=== PATIENT | male | born 1995 | race Caucasian/White ===

== ENCOUNTER 2017-02-14 10:23 | Emergency (ER) | payer OTHER ==
[~2017-02-14] VITALS: Ht 172.7 cm; Wt 79.4 kg
[2017-02-14 10:24] VITALS: BP 142/74
[2017-02-14] MEDS ORDERED: AUGM500T34 PO (10:34)
[2017-02-14] MEDS ORDERED: NORCO, ANEXSIA 5/325MG TABLET (HYDROcodone/ACETAMINOPHEN) PO ONE (10:45)
[2017-02-14] MEDS ORDERED: KETOROLAC 60 MG/2 ML VIAL (J1885) IM ONE (10:45)
[2017-02-14] MEDS ORDERED: ROBA500T PO ×2 (11:27→11:37)
[2017-02-14] MEDS ORDERED: NAPR500T2 PO ×2 (11:27→11:37)
[2017-02-14] MEDS ORDERED: NORCOTAB PO ×2 (11:27→11:37)
--- NOTE | 2017-02-14 11:28 | REP ---
Clinical: Pain . Technique: AP, lateral, flexion/extension, bilateral oblique, and open-mouth views. Findings: Alignment and lordosis is maintained. There is no evidence for acute fracture / compression injury or subluxation. No significant degenerative changes are appreciated. Oblique views demonstrate patent neural foramen. Open mouth view demonstrates normal C1-C2 articulation and odontoid process. Impression: Normal cervical spine series. Signed by Betito Berry MD 02/14/2017 11:20 A
== END 2017-02-14 11:39 | disposition home or self-care (01) ==
LOC: M ED 11:34
DX: H00.026 Hordeolum internum left eye, unspecified eyelid (principal); S16.1XXA Strain of muscle, fascia and tendon at neck level, initial encounter; X50.3XXA Overexertion from repetitive movements, initial encounter; Y92.89 Other specified places as the place of occurrence of the external cause; Y93.89 Activity, other specified; Y99.8 Other external cause status
CPT/HCPCS: 72052; 96372; 99282; J1885